=== PATIENT | female | born 1990 | race Caucasian/White ===

== ENCOUNTER 2020-05-24 14:37 | Emergency (ER) | payer OTHER ==
[~2020-05-24] VITALS: Ht 165.1 cm; Wt 86.6 kg
--- NOTE | 2020-05-24 14:45 | NUR ---
ER BED 1 PT BIB SELF CHIEF COMPLAINT OF ZOEY EAR PAIN AND NECK PAIN 03/29. VS STABLE. AWAITING TO BE SEEN BY
--- NOTE | 2020-05-24 14:50 | NUR ---
seen and evaluated by MD. waiting for order
[2020-05-24 14:59] VITALS: BP 131/88
--- NOTE | 2020-05-24 15:00 | NUR ---
D/C HOME Patient discharged to home in stable condition. Written and verbal after care instructions given. Patient verbalizes understanding of instruction.
== END 2020-05-24 15:03 | disposition home or self-care (01) ==
LOC: ER 14:43
DX: H92.03 Otalgia, bilateral (principal)